=== PATIENT | female | born 1940 | race Caucasian/White ===

== ENCOUNTER 2019-10-12 17:28 | Emergency (ER) | payer MEDICARE ==
[~2019-10-12] VITALS: Ht 165.1 cm; Wt 70.5 kg
[~2019-10-12 17:28] MED LIST: BENADRYL25 M2 PO; COLACE 100100 MG/CAP PO; COMPAZINE 5MG TA5 MG; NORCO 325 MG-7.1 TAB PO; PROTONIX 40MG T40 MG PO; SYNTHROID0.075 MG/T PO; TRANXENE7.5 MG PO
[2019-10-12 17:34] VITALS: BP 115/55; TEMP 98.9
[2019-10-12 18:11] LABS: MEAN CELL VOLUME 88 fl (80.0-100.0); MEAN CORPUSCULAR HEMOGLOBIN 28 pg (27.0-31.0); MEAN CORPUSCULAR HGB CONC 33 g/dl (33.0-37.0); MEAN PLATELET VOLUME 11.2 fl (7.4-10.4); PLATELET COUNT 231 K/mm3 (130-400); RED BLOOD COUNT 4.57 M/mm3 (4.10-5.30); REDCELL DISTRIBUTION WIDTH-CV 13.2 % (11.5-14.5)
[2019-10-12] MEDS ORDERED: ATROVENT INHALE14 GM IH (18:15)
[2019-10-12] MEDS ORDERED: CARAFATE 1GM1 G PO (18:16)
[2019-10-12] MEDS ORDERED: MYRBETR50MG PO (18:17)
[2019-10-12] MEDS ORDERED: REMERON30 MG PO (18:17)
[2019-10-12] MEDS ORDERED: PREVACID 15MG15 M1 PO (18:17)
[2019-10-12 18:44] LABS: BAND 22 % (0-10); EOSINOPHIL 1 % (0-4); LYMPHOCYTE 27 % (20.0-51.0); NEUTROPHILS 43 % (42.0-75.2); PLATELET ESTIMATE NORMAL (NORMAL)
[2019-10-12 18:45] LABS: HYPOCHROMIA 1+
[2019-10-12 18:52] LABS: ALBUMIN 4.5 gm/dL (3.5-5.0); BILIRUBIN,TOTAL 0.7 mg/dL (0.0-1.0); CALCIUM 9.3 mg/dL (8.4-10.2); CREATININE, serum 2.01 (0.52-1.25); POTASSIUM 3.9 mmol/L (3.4-5.0); TOTAL PROTEIN 7.9 gm/dL (6.4-8.2)
[2019-10-12] MEDS ORDERED: LOMOTIL 0.025 M1 TAB PO (22:44)
[2019-10-12 23:03] VITALS: PULSE 86
== END 2019-10-12 23:03 | disposition home or self-care (01) ==
LOC: COL.ER 17:28
PROVIDERS: Emergency Medicine
DX: R19.7 Diarrhea, unspecified (principal); E86.0 Dehydration
CPT/HCPCS: J2405; J7030

== ENCOUNTER 2019-10-18 13:44 | Day surgery (SDC) | payer MEDICARE ==
[~2019-10-18] VITALS: Ht 160 cm; Wt 65.6 kg
[~2019-10-18 13:44] MED LIST changes: +ATROVENT INHALE14 GM IH; +CARAFATE 1GM1 G PO; +LOMOTIL 0.025 M1 TAB PO; +MYRBETR50MG PO; +PREVACID 15MG15 M1 PO; +REMERON30 MG PO
[2019-10-18] MEDS ORDERED: MYRBETR50MG PO (14:15)
[2019-10-18] MEDS ORDERED: REMERON30 MG PO (14:16)
[2019-10-18] MEDS ORDERED: CARAFATE 1GM1 G PO (14:16)
[2019-10-18] MEDS ORDERED: COMPAZINE 5MG TA5 MG PO (14:17)
[2019-10-18] MEDS ORDERED: PROBIOTIC FORMU1 CAP PO (14:18)
[2019-10-18] MEDS ORDERED: COMPAZINE 110 MG/TAB PO (14:21)
[2019-10-18 14:35] VITALS: BP 135/87; PULSE 95; TEMP 97.4
--- NOTE | 2019-10-18 14:49 | NUR ---
Notified Infectious disease Sadie Fitzgerald of patient's complaints of diarrhea since September 14. Patient denies any other symptoms. Good hand hygiene will be done.
[2019-10-18 16:05] VITALS: BP 117/47; PULSE 87
--- NOTE | 2019-10-18 16:05 | NUR ---
Patient returns to [facility] per cart and kept on cart due to feeling weak. Contact isolation initiated for possible C-diff. IV fluids infusing and site is free of redness. Siderails up x2 and call light in reach. Warm blankets on and allowed to rest.
[2019-10-18 16:20] VITALS: BP 123/71; PULSE 91
--- NOTE | 2019-10-18 16:20 | NUR ---
Eating toast and drinking water. Daughter in room.
[2019-10-18 16:35] VITALS: BP 124/63; PULSE 90
[2019-10-18] MEDS ORDERED: LOMOTIL 0.025 M1 TAB PO (16:35)
--- NOTE | 2019-10-18 16:35 | NUR ---
Dr. Hunter and talks with the patient and spouse. All questions answered. Informed that Vancomycin script was sent to [facility] and provided script for Dionne.
[2019-10-18] MEDS ORDERED: VANCOCIN H125 MG/CAP PO (16:36)
--- NOTE | 2019-10-18 16:45 | NUR ---
Tolerated toast and water. IV discontinued and assisted patient with dressing. Contact isolation maintained.
--- NOTE | 2019-10-18 16:50 | NUR ---
Dismissal instructions given and voices understanding of these.
--- NOTE | 2019-10-18 16:55 | NUR ---
Patient dismissed to home driven by daughter and taken to the front door per wheelchair and assisted into car with dismissal instructions in hand.
== END 2019-10-18 16:55 | disposition home or self-care (01) ==
LOC: SDCO 13:44
DX: K52.832 Lymphocytic colitis (principal); Z88.2 Allergy status to sulfonamides; Z87.891 Personal history of nicotine dependence
CPT/HCPCS: J2250; J3010; J7030

== ENCOUNTER 2020-12-25 16:45 | Emergency (ER) | payer MEDICARE ==
[~2020-12-25] VITALS: Ht 160 cm; Wt 66.8 kg
[~2020-12-25 16:45] MED LIST changes: +COMPAZINE 110 MG/TAB PO; +COMPAZINE 5MG TA5 MG PO; +PROBIOTIC FORMU1 CAP PO; +VANCOCIN H125 MG/CAP PO
[2020-12-25 16:56] VITALS: PULSE 71; TEMP 97
[2020-12-25] MEDS ORDERED: MOBIC 7.5MG7.5 MG PO (18:15)
== END 2020-12-25 18:35 | disposition home or self-care (01) ==
LOC: COL.ER 16:45
DX: M25.561 Pain in right knee (principal); G89.29 Other chronic pain; M54.5 Low back pain; E07.9 Disorder of thyroid, unspecified; Z88.2 Allergy status to sulfonamides; Z87.891 Personal history of nicotine dependence
CPT/HCPCS: J1885

== ENCOUNTER 2023-08-25 13:30 | Emergency (ER) | payer MEDICARE ==
[~2023-08-25] VITALS: Ht 160 cm; Wt 56.8 kg
[~2023-08-25 13:30] MED LIST changes: +ARICEPT 5MG PO; +ATROVENT NASAL15 ML NS; +B-121000 MCG PO; +CREON 36000 PO; +ESTRACE0.1 MG/GM VG; +FERROUS SU325 MG/TAB PO; +MOBIC 7.5MG7.5 MG PO; +MULTI VITAMINS1 TAB PO; +OS-CAL 500 + D1 TAB PO; +PERCOCET 325 MG1 TA3 PO; +PREDNISONE 2.52.5 MG PO; +PREVACID 30MG30 M1 PO; +TYLENOL 500MG500 MG PO; +VITAMIN B12 781 TAB PO; +VITAMIN C500 MG PO; +VITAMIN D31000 I1 PO; +VITAMINC1000TA PO; +XARELTO10 MG PO; +ZOVIRAX51 TP
[2023-08-25 14:30] LABS: BASO % 0.5 % (0.0-2.0); EOS % 0.2 % (0.0-4.0); GRAN # 5.1 K/mm3 (1.4-6.5); GRAN % 87.4 % (42.2-75.2); HEMATOCRIT 39.4 % (37.0-47.0); HEMOGLOBIN 12.5 g/dl (12.5-16.0); LYMPH # 0.4 K/mm3 (1.2-3.4); LYMPH % 6.3 % (20.0-51.0); MEAN CELL VOLUME 88 fl (80.0-100.0); MEAN CORPUSCULAR HEMOGLOBIN 28 pg (27-31); MEAN CORPUSCULAR HGB CONC 32 g/dl (33.0-37.0); MEAN PLATELET VOLUME 10.7 fl (7.4-10.4); MONO # 0.3 K/mm3 (0.1-0.6); MONO % 5.3 % (1.7-9.3); PLATELET COUNT 258 K/mm3 (130-400); REDCELL DISTRIBUTION WIDTH-CV 15.4 % (11.5-14.5)
[2023-08-25] MEDS ORDERED: LR 1,000 ML IV ONE (14:30)
[2023-08-25] MEDS ORDERED: Ondansetron 4 MG/2 ML VIAL IV ONE (14:30)
[2023-08-25 14:52] LABS: ALBUMIN 4.2 gm/dL (3.4-4.8); BILIRUBIN,TOTAL 0.5 mg/dL (0.2-1.2); C-REACTIVE PROTEIN 0.21 mg/dL (0.00-0.50); CREATININE, serum 0.8 mg/dL (0.57-1.11); POTASSIUM 4.4 mmol/L (3.5-4.5); TOTAL PROTEIN 7.1 gm/dL (6.2-8.1)
[2023-08-25] MEDS ORDERED: Meclizine 25 MG TAB PO ONE ×2 (15:30)
[2023-08-25 16:39] LABS: COLLECTION METHOD CLEAN CATCH
[2023-08-25 17:00] LABS: PH 6.5 (5.0-8.5); SQUAMOUS EPITHELIAL 0-2 /hpf (0-10); URINE APPEARANCE Clear (CLEAR/HAZY); URINE BACTERIA Rare /hpf (NONE SEEN); URINE BLOOD TRACE-INTACT (NEGATIVE); URINE COLOR Yellow (YELLOW); URINE GLUCOSE Negative (NEGATIVE); URINE KETONE Negative (NEGATIVE); URINE NITRATE Negative (NEGATIVE); URINE PROTEIN(semi-quant) Negative (NEGATIVE); URINE RBC 0-2 /hpf (0-2); URINE UROBILINOGEN 0.2 E.U/dL (0.2-1.0)
[2023-08-25 17:08] VITALS: BP 140/70; PULSE 88; TEMP 97.4
[2023-08-25] MEDS ORDERED: ANTIVERT 25MG25 MG PO (17:09)
== END 2023-08-25 17:20 | disposition home or self-care (01) ==
LOC: COL.ER 13:30
PROVIDERS: Family Medicine
DX: R42 Dizziness and giddiness (principal); R51.9 Headache, unspecified; E87.1 Hypo-osmolality and hyponatremia; R11.0 Nausea
CPT/HCPCS: J2405; J7120